=== PATIENT | female | born 1990 | race Two or more races ===

== ENCOUNTER 2024-02-27 21:38 | Inpatient (IN) ==
[2024-02-27] MEDS ORDERED: Lidocaine 1% VIAL 10 MG/ML 30 ML VIAL INJ PRN (23:13)
[2024-02-28 00:50] LABS: ABS Basophils 0.1 10^3/uL (0.0-0.1); ABS Eosinophils 0.1 10^3/uL (0.0-0.5); ABS Lymphocytes 3.1 10^3/uL (1.0-4.8); ABS Monocytes 0.8 10^3/uL (0.0-0.9); ABS Neutrophils 9.5 10^3/uL (1.5-7.6); ABS Nucleated RBC 0.04 10^3/ul; Eosinophil % 0.6 %; Hematocrit 37.2 % (35-45); Hemoglobin 12.3 g/dL (11.5-14.3); Lymphocyte % 22.8 %; Mean Corpuscular Hemoglobin 28.3 pg (27-33); Mean Corpuscular Volume 85.8 fL (80-97); Mean Platelet Volume 8.4 fL (7.5-11.2); Nucleated Red Blood Cells % 0.3 %/100WBC (0.0-0.8); Platelet Count 276 10^3/uL (150-450); Red Blood Count 4.34 10^6/uL (3.63-4.92); White Blood Count 13.6 10^3/uL (3.8-11.8)
[2024-02-28] MEDS ORDERED: Lidocaine 1.5% EPI 1:200,000 30 ML SDV ONE (01:00)
[2024-02-28 01:15] LABS: Urine Creatinine Concentration 40.31 mg/dL (20.00-320.00); Urine TP Creat Ratio 0.12 mg/mg
[2024-02-28 01:19] LABS: Albumin 3.6 g/dL (3.2-5.2); Albumin/Globulin Ratio 1.2 (1-3); Calcium 8.9 mg/dL (8.6-10.3); Creatinine, Serum 0.8 mg/dL (0.51-0.95); Potassium 4.1 mmol/L (3.5-5.0); Total Bilirubin 0.4 mg/dL (0.2-1.0); Total Protein 6.6 g/dL (6.4-8.9); Uric Acid 7.6 mg/dL (2.3-6.6); eGFR CKD-EPI 99.7 (>60)
[2024-02-28 01:25] LABS: Urine Benzodiazepine Screen None Detected (None Detect); Urine Cannabinoids Screen None Detected (None Detect); Urine Opiates Screen None Detected (None Detect)
[2024-02-28] MEDS: Lactated Ringers 1000 ml BAG 1,000 ML IV ONE (01:43)
[2024-02-28] MEDS: OBEPIDURAL (200 ML) 200 ML EPIDURAL ONE (01:51)
[2024-02-28] MEDS ORDERED: Phenylephrine 40 mcg/mL 10mL (400mcg) SYRINGE IV PUSH PRN ×2 (01:55)
[2024-02-28] MEDS ORDERED: Lactated Ringers 1000 ml BAG 1,000 ML IV ONE (01:55)
[2024-02-28] MEDS ORDERED: Sodium Citrate/Citric Acid LIQ 15 ML UDC PO PRN (01:55)
[2024-02-28] MEDS ORDERED: OBEPIDURAL (200 ML) 200 ML EPIDURAL SCH (02:00)
[2024-02-28] MEDS: Lactated Ringers 1000 ml BAG 1,000 ML IV SCH (02:12)
[2024-02-28] MEDS: Oxytocin in LR 20,000 MILLI.UNIT/1,000 ML BAG IV SCH ×2 (04:20→21:04)
[2024-02-28 04:23] LABS: Urine Appearance Clear; Urine Bilirubin Negative (Negative); Urine Blood 2+ (Negative); Urine Color Light-Yellow; Urine Glucose Negative (Negative); Urine Ketones Negative (Negative); Urine Nitrite Negative (Negative); Urine Protein Negative (Negative); Urine Specific Gravity 1.009 (1.002-1.030); Urine Urobilinogen Negative (Negative)
[2024-02-28 05:26] LABS: Urine Bacteria Absent /HPF (Absent); Urine Red Blood Cell 1+(3-5/hpf) /HPF (0-Trace); Urine Squamous Epithelial Cell Present /HPF (Absent); Urine White Blood Cell Absent /HPF (0-Trace)
[2024-02-28] MEDS ORDERED: ceFOXitin 2 GM IVPREMIX 2 GM/50 ML BAG IVPB ONE (17:01)
[2024-02-28] MEDS ORDERED: Lidocaine 2% w/ EPI 1:200,000 MPF 20 ML SDV VIAL ONE (17:14)
[2024-02-28] MEDS ORDERED: Metoclopramide 5 MG/ML VIAL (10 mg) ONE (17:15)
[2024-02-28] MEDS ORDERED: Sodium Citrate/Citric Acid LIQ 15 ML UDC ONE (17:35)
[2024-02-28] MEDS ORDERED: Phenylephrine IV 10 MG/ML 1 ml VIAL ONE (17:35)
[2024-02-28] MEDS ORDERED: Oxytocin 10 UNITS/ML 1 ML VIAL ONE (17:43)
[2024-02-28] MEDS ORDERED: Ondansetron 4 mg VIAL 2 MG/ML 2 ml VIAL ONE (17:46)
[2024-02-28] MEDS ORDERED: Morphine PF AMP (0.5MG/ML) 5 MG/10 ML AMP ONE (17:56)
[2024-02-28] MEDS ORDERED: Lidocaine 2% PF 10 ML AMP (OR) ONE (18:15)
[2024-02-28] MEDS ORDERED: Acetaminophen IV 1 GM/100ML 1,000 MG/100 ML BAG IV ONE (18:39)
[2024-02-28] MEDS ORDERED: Measles, Mumps,Rubella VACC 0.5 ML/VIAL SUBCUT ONE (20:15)
[2024-02-28] MEDS ORDERED: Witch Hazel PAD JAR TOPICAL PRN (20:15)
[2024-02-28] MEDS ORDERED: Glycerin ADULT 2.4 gm SUPP PR PRN (20:15)
[2024-02-28] MEDS ORDERED: Lactated Ringers 1000 ml BAG 1,000 ML IV SCH (21:00)
[2024-02-29] MEDS ORDERED: Naloxone 0.4 mg VIAL 0.4 mg/ml 1 ml VIAL IV PUSH PRN (03:04)
[2024-02-29] MEDS ORDERED: Acetaminophen IV 1 GM/100ML 1,000 MG/100 ML BAG IV PRN (03:04)
[2024-02-29] MEDS ORDERED: Ondansetron 4 mg VIAL 2 MG/ML 2 ml VIAL IV PRN (03:04)
[2024-02-29] MEDS ORDERED: Metoclopramide 5 MG/ML VIAL (10 mg) IV PRN (03:04)
[2024-02-29 07:08] LABS: ABS Basophils 0.1 10^3/uL (0.0-0.1); ABS Monocytes 1.2 10^3/uL (0.0-0.9); ABS Neutrophils 17.3 10^3/uL (1.5-7.6); ABS Nucleated RBC 0.02 10^3/ul; Eosinophil % 0.2 %; Hematocrit 29.5 % (35-45); Hemoglobin 9.8 g/dL (11.5-14.3); Lymphocyte % 9.7 %; Mean Corpuscular Hemoglobin 28.5 pg (27-33); Mean Corpuscular Hgb Conc 33.3 g/dL (31-36); Mean Corpuscular Volume 85.7 fL (80-97); Mean Platelet Volume 7.5 fL (7.5-11.2); Nucleated Red Blood Cells % 0.1 %/100WBC (0.0-0.8); Platelet Count 181 10^3/uL (150-450); Red Blood Count 3.45 10^6/uL (3.63-4.92); Red Cell Distribution Width 16.4 % (12-17); White Blood Count 20.6 10^3/uL (3.8-11.8)
[2024-03-02 08:18] VITALS: BP 124/79
== END 2024-03-02 14:30 | disposition home or self-care (01) | DRG 788 ==
LOC: MCHOBOUT 21:38 → MCHOB 23:11
PROVIDERS: ADMIT Midwife; ATTEND Obstetrics & Gynecology